=== PATIENT | female | born 1965 | race Caucasian/White ===

== ENCOUNTER 2019-11-14 14:04 | Outpatient (CLI) | payer OTHER, MEDICARE | END 2019-11-14 23:59 | disposition home or self-care (01) | LOC: CFH 14:04 | PROVIDERS: ATTEND Nurse Practitioner | DX: Z12.31 Encounter for screening mammogram for malignant neoplasm of breast (principal); N64.89 Other specified disorders of breast | CPT/HCPCS: 77067 ==